=== PATIENT | female | born 1995 | race African-American/Black ===

== ENCOUNTER 2018-10-21 14:34 | Emergency (ER) | payer MEDICAID ==
[~2018-10-21] VITALS: Ht 167.6 cm; Wt 55.0 kg
[2018-10-21] MEDS ORDERED: MORPHINE SULFATE 4 MG/ML CPJ (NOT FOR IM USE) IV STA (15:31)
[2018-10-21] MEDS ORDERED: ONDANSETRON HCL 4MG/2ML INJ IV STA (15:31)
[2018-10-21] MEDS ORDERED: SODIUM CHLORIDE 0.9% 1,000 ML IV ONE (15:31)
[2018-10-21] MEDS ORDERED: MORPHINE SULFATE 4 MG/ML CPJ (NOT FOR IM USE) IV ONE (15:45)
[2018-10-21] MEDS ORDERED: ETOMIDATE 2MG/ML 10ML VIAL IV ONE (15:45)
[2018-10-21 17:30] VITALS: BP 139/95
== END 2018-10-21 17:41 | disposition home or self-care (01) ==
LOC: ER 14:34
DX: S43.084A Other dislocation of right shoulder joint, initial encounter (principal); F12.10 Cannabis abuse, uncomplicated; X58.XXXA Exposure to other specified factors, initial encounter; Y93.89 Activity, other specified; Y92.89 Other specified places as the place of occurrence of the external cause; Y99.8 Other external cause status
CPT/HCPCS: 23650; 73030; 96374; 99285; J2270; J2405; J3490; J7030; L3670